=== PATIENT | female | born 1935 | race Caucasian/White ===

== ENCOUNTER 2017-12-29 10:57 | Emergency (ER) | payer MEDICARE, BC ==
--- NOTE | 2017-12-29 12:46 | EDM.PDOC ---
ED HPI GENERAL MEDICAL PROBLEM - General Chief Complaint: Neurological Problem Stated Complaint: NUMBNESS & TINGLING ON RT SIDE OF FACE Time Seen by Provider: 12/29/17 11:20 Source of Information: Reports: Patient History Limitations: Reports: No Limitations - History of Present Illness INITIAL COMMENTS - FREE TEXT/NARRATIVE: Pt arrived with a history of her rt face droopy slightly. She noted some thickness by the rt upper lip area. She had no other symptoms. She does have a history of haeadaches. 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 Onset: Other (Pt noticed this am and he feels it is slightly better thn earlier. ) Duration: Hour(s):, Improving Location: Reports: Face Associated Symptoms: Reports: No Other Symptoms Head Pain Score (Numeric/FACES): 3 - Related Data Allergies Allergy/AdvReac Type Severity Reaction Status Date / Time Sulfa (Sulfonamide Allergy Intermediate Other Verified 12/29/17 12:54 Antibiotics) Past Medical History HEENT History: Reports: Impaired Vision [employer] History: Reports: - Past Surgical History Female Surgical History: Reports: Hysterectomy Other Endocrine Surgeries/Procedures: THYROID PROBLEMS Social & Family History - Tobacco Use Smoking Status *Q: Unknown Ever Smoked ED ROS GENERAL - Review of Systems Review Of Systems: See Below Constitutional: Reports: No Symptoms HEENT: Reports: Other ( rt facial numbness. ) Respiratory: Reports: No Symptoms Cardiovascular: Reports: No Symptoms Endocrine: Reports: No Symptoms GI/Abdominal: Reports: No Symptoms : Reports: No Symptoms Musculoskeletal: Reports: No Symptoms Skin: Reports: No Symptoms Neurological: Reports: Numbness, Other ( numbness in the rt facial area with nettie drooping. ) ED EXAM, NEURO - Physical Exam Exam: See Below Text/Narrative:: pt is alert and oriented. She feels like she has some definite facial weakness, She did not have a severe headache Exam Limited By: No Limitations General Appearance: Alert, No Apparent Distress, Anxious, Other (pupils equal and reactive) Ears: Normal TMs Nose: Normal Inspection Throat/Mouth: Other ( There may be mild thickness in the rt upper lip) Head Exam: Atraumatic Neck: Normal Inspection Respiratory/Chest: No Respiratory Distress Cardiovascular: Regular Rate, Rhythm GI/Abdominal: Soft, Non-Tender (Female) Exam: Deferred Rectal (Female) Exam: Normal Exam Neurological: Alert, Normal Gait, Oriented x 3, Other (Pt has the numbness on the rt facial area. Thre is nettie thickening of the rt upper lip and it does not move well. She closes her eyes well, she wrinkles her forehead and it is symetrical. ) Back Exam: Normal Inspection Extremities: Normal Inspection Psychiatric: Normal Affect Course - Vital Signs Last Recorded V/S: Last Vital Signs Temp 37.5 C 12/29/17 14:33 Pulse 77 12/29/17 14:33 Resp 14 12/29/17 14:33 BP 149/65 H 12/29/17 14:33 Pulse Ox 100 12/29/17 14:33 - Orders/Labs/Meds Labs: Laboratory Tests 12/29/17 12/29/17 12/29/17 Range/Units 00:25 00:25 12:37 WBC 6.2 (4.5-11.0) K/uL RBC 4.22 (3.30-5.50) M/uL Hgb 13.0 (12.0-15.0) g/dL Hct 39.4 (36.0-48.0) % MCV 93 (80-98) fL MCH 31 (27-31) pg MCHC 33 (32-36) % Plt Count 188 (150-400) K/uL Neut % (Auto) 70 H (36-66) % Lymph % (Auto) 22 L (24-44) % [place] % (Auto) 7 H (2-6) % Eos % (Auto) 1 L (2-4) % Baso % (Auto) 0 (0-1) % Sodium 140 (140-148) mmol/L Potassium 3.9 (3.6-5.2) mmol/L Chloride 105 (100-108) mmol/L Carbon Dioxide 28 (21-32) mmol/L Anion Gap 6.6 (5.0-14.0) mmol/L BUN 22 H (7-18) mg/dL Creatinine 0.8 (0.6-1.0) mg/dL Est Cr Clr Drug Dosing 47.10 mL/min Estimated GFR (MDRD) > 60 (>60) Glucose 97 (74-106) mg/dL Calcium 8.5 (8.5-10.1) mg/dL Total Bilirubin 0.6 (0.2-1.0) mg/dL AST 26 (15-37) U/L ALT 27 (12-78) U/L Alkaline Phosphatase 82 (46-116) U/L Total Protein 6.6 (6.4-8.2) g/dL Albumin 3.3 L (3.4-5.0) g/dL Globulin 3.3 (2.3-3.5) g/dL Albumin/Globulin Ratio 1.0 L (1.2-2.2) TSH, Ultra Sensitive 1.844 (0.358-3.740) uIU/mL Urine Color Urine Appearance Urine pH (4.5-8.0) Ur Specific [place] (1.008-1.030) Urine Protein (NEGATIVE) mg/dL Urine Glucose (UA) (NEGATIVE) mg/dL Urine Ketones (NEGATIVE) mg/dL Urine Occult Blood (NEGATIVE) Urine Nitrite (NEGATIVE) Urine Bilirubin (NEGATIVE) Urine Urobilinogen (NORMAL) mg/dL Ur Leukocyte Esterase (NEGATIVE) Urine RBC (0-5) Urine WBC (0-5) Ur Epithelial Cells Amorphous Sediment Urine Bacteria Urine Mucus 12/29/17 Range/Units 12:55 WBC (4.5-11.0) K/uL RBC (3.30-5.50) M/uL Hgb (12.0-15.0) g/dL Hct (36.0-48.0) % MCV (80-98) fL MCH (27-31) pg MCHC (32-36) % Plt Count (150-400) K/uL Neut % (Auto) (36-66) % Lymph % (Auto) (24-44) % [place] % (Auto) (2-6) % Eos % (Auto) (2-4) % Baso % (Auto) (0-1) % Sodium (140-148) mmol/L Potassium (3.6-5.2) mmol/L Chloride (100-108) mmol/L Carbon Dioxide (21-32) mmol/L Anion Gap (5.0-14.0) mmol/L BUN (7-18) mg/dL Creatinine (0.6-1.0) mg/dL Est Cr Clr Drug Dosing mL/min Estimated GFR (MDRD) (>60) Glucose (74-106) mg/dL Calcium (8.5-10.1) mg/dL Total Bilirubin (0.2-1.0) mg/dL AST (15-37) U/L ALT (12-78) U/L Alkaline Phosphatase (46-116) U/L Total Protein (6.4-8.2) g/dL Albumin (3.4-5.0) g/dL Globulin (2.3-3.5) g/dL Albumin/Globulin Ratio (1.2-2.2) TSH, Ultra Sensitive (0.358-3.740) uIU/mL Urine Color Yellow Urine Appearance Clear Urine pH 5.0 (4.5-8.0) Ur Specific [place] 1.025 (1.008-1.030) Urine Protein Negative (NEGATIVE) mg/dL Urine Glucose (UA) Normal (NEGATIVE) mg/dL Urine Ketones Negative (NEGATIVE) mg/dL Urine Occult Blood Negative (NEGATIVE) Urine Nitrite Negative (NEGATIVE) Urine Bilirubin Negative (NEGATIVE) Urine Urobilinogen Normal (NORMAL) mg/dL Ur Leukocyte Esterase Small (NEGATIVE) Urine RBC 0-5 (0-5) Urine WBC 0-5 (0-5) Ur Epithelial Cells Rare Amorphous Sediment Not seen Urine Bacteria Not seen Urine Mucus Not seen - Re-Assessments/Exams Free Text/Narrative Re-Assessment/Exam: 12/29/17 14:45 Lab work is normal, Her cat scan of the head did not show acute findings. Departure - Departure Time of Disposition: 14:28 Disposition: Home, Self-Care 01 Condition: Fair Clinical Impression: Rt facial numbness - Discharge Information Instructions: Stroke Prevention Referrals: Jorge Hays MD [Primary Care Provider] - Forms: ED Department Discharge Care Plan Goals: appt with Dr Hays to see if a Connolly s palsy might be developing. Also to assess whether symptoms are persistent and whether he might want to get a MRI. baby asa 81 mg daily, rtc if symptoms should get worse.
--- NOTE | 2017-12-29 13:40 | CT ---
Head wo Cont INDICATION: rt facial numbness TECHNIQUE: CT images of the head obtained without IV contrast. Dosage reduction and iterative reconstruction techniques employed. COMPARISON: MR brain 07/27/2008 FINDINGS: No acute intracranial abnormality. No hemorrhage, edema or mass effect. Known meningioma in the left posterior fossa now measuring 1.8 cm, previously 1.4 cm. 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 Mild chronic small vessel ischemic disease. The ventricles are normal size. Visualized paranasal sinuses clear. IMPRESSION: 1. Nothing acute. 2. Known meningioma left posterior fossa. Erosion inner table of skull.
== END 2017-12-29 14:53 | disposition home or self-care (01) ==
LOC: JP.ED 10:57
DX: R20.0 Anesthesia of skin (principal); Z88.2 Allergy status to sulfonamides
CPT/HCPCS: 36415; 70450; 70450-26; 80053; 81001; 84443; 85025; 99284-25

== ENCOUNTER 2021-09-15 18:27 | Emergency (ER) | payer MEDICARE, BC ==
[2021-09-15 19:45] LABS: CORONAVIRUS COVID-19 NAA POSITIVE (NEGATIVE)
== END 2021-09-15 21:44 | disposition home or self-care (01) ==
LOC: JP.ED 18:27
DX: U07.1 COVID-19 (principal); R41.0 Disorientation, unspecified; E03.9 Hypothyroidism, unspecified; Z88.2 Allergy status to sulfonamides; Z79.899 Other long term (current) drug therapy
CPT/HCPCS: 0241U; 36415; 71045; 80053; 81001; 82728; 83605; 83615; 84145; 84439; 84443; 85025; 85379; 86140; 99285